=== PATIENT | male | born 1990 | race Caucasian/White ===

== ENCOUNTER → 2017-09-23 12:49 | Outpatient (CLI) | payer BC, SELFPAY ==
--- NOTE | 2017-09-23 12:51 | MR_ITS ---
MR head/brain wo con Ordering Physician: Meghana Castorena Patient Age: 27 years: Male HISTORY: ITS.REASON: NEW LYNN HEADACHE, CERVICALGIA Headache. Constant headaches 5 days worse in the mornings DISI blurred vision headache and imbalance. TECHNIQUE: Noncontrast MR brain . Multiplanar FLAIR, T1, T2 weighted images along with axial diffusion/ADC imaging performed on 1.5 T. Siemens, MRI. . COMPARISON :CT head without contrast 09/19/2017 FINDINGS No mass lesion or mass effect.. No territorial infarct. FLAIR images reveal no significant white matter foci. No recent infarct nor ischemia evident on diffusion images . No extra-axial collections. Scalp and skull unremarkable Normal anatomy. Cranial cervical junction is normal. Sella and basal cisterns appear normal. . Posterior fossa IACs unremarkable. Mastoid region unremarkable. The mild asymmetry of the lateral ventricles falls within spectrum normal variation. With the Right lateral ventricle slightly more generous than the left On recent CT generous transverse sinus on right was noted. There is normal flow-void the right transverse sinus as well as the left transverse sinus. Superior sagittal sinus also with normal flow-void.. Deviation of nasal septum. Engorgement right nasal turbinates. The visualized paranasal sinuses are clear. Frontal sinuses unremarkable.. IMPRESSION Normal MRI the brain. No lesions. No abnormalities evident.
--- NOTE | 2017-09-23 12:51 | MR_ITS ---
MR cervical spine wo con, MR 3-d myelogram/MRCP Ordering Physician: Meghana Castorena Patient Age: 27 years: Male HISTORY: ITS.REASON: NEW LYNN HEADACHE, CERVICALGIA Pain with moving head. Symptoms 5 days. Intermittent. TECHNIQUE: Sagittal STIR, T1, T2, axial T1 and T2. On 1.5T Siemens wide bore MRI. 3-D MR myelogram image set obtained & performed on MRI workstation. Additional sagittal thin section T2 weighted dataset obtained from this latter acquisition as well (---76 CPT) COMPARISON :None FINDINGS Cranial cervical junction is normal . The vertebral bodies are intact throughout the cervical spine. Disc spaces are well-maintained. No disc protrusion. No remarkable spurring or spondylosis. Neural foramen widely patent at all levels with no encroachment.. Generous caliber osseous cervical spinal canal. Cervical cord normal in caliber and signal. Posterior elements at C6/7 perhaps upper normal prominence & may very slightly indents the posterior aspect of thecal sac. Spinal canal remains normal generous size throughout this region. In either case.. 3-D MR myelogram image set appears overall satisfactory as well IMPRESSION: Negative MRI cervical spine. WNL . No lesions. No masses. No stenosis nor remarkable spurring... Generous volume osseous cervical canal
== END ==
PROVIDERS: Family Provider Family Medicine; Visit Provider Nurse Practitioner Family
DX: G44.52 New daily persistent headache (NDPH) (principal); G54.2 Cervical root disorders, not elsewhere classified; M54.2 Cervicalgia
CPT/HCPCS: 70551; 72141; 76376